=== PATIENT | female | born 1985 | race Caucasian/White ===

== ENCOUNTER → 2019-04-09 | Outpatient (CLI) | payer OTHER ==
[~2019-04-09] MED LIST: ALBU90OI INH; AZIT250 PO; BCP'S; BENZ100A PO; BIRTH CONTROL; BUSP15 PO; CODGUAEL PO; CYCL10 PO; DOXY100 PO; DULO60 PO; Flonase 0.05% N16 GM; GABA100 PO; Guaifenesin-Co118 ML PO; HYDACE5 PO; HYDR1TAB94 PO; MEDR150I IM; METPRE4DP PO; NAPR500 PO; OXYACE5T PO; PROC10 PO; PROCODE120 PO; PROM25 PO; Percocet 5-3251 EACH PO; QUET100; QUET25 PO; RXCYCL10 PO; RXHYD5325 PO; Seroquel25 MG PO; TRAZ100 PO; VENL75ER; Zithromax250 MG PO; Zofran Odt4 MG PO; Zofran Odt4 MG SL; Zofran4 MG PO
[2019-04-09 13:47] LABS: BASOPHILS ABSOLUTE AUTO 0.03 K/mm3 (0.00-0.23); BASOPHILS PERCENT AUTO 0 % (0-2); EOSINOPHILS ABSOLUTE AUTO 0.17 K/mm3 (0.00-0.68); EOSINOPHILS PERCENT AUTO 2 % (0-6); Hemoglobin 13.2 g/dL (11.5-16.0); IMMATURE GRAN ABSOLUTE AUTO 0.03 K/mm3 (0.00-0.10); IMMATURE GRAN PERCENT AUTO 0 % (0-1); LYMPHOCYTES ABSOLUTE AUTO 2.13 K/mm3 (0.84-5.20); LYMPHOCYTES PERCENT AUTO 25 % (21-46); MONOCYTES ABSOLUTE AUTO 0.56 K/mm3 (0.16-1.47); MONOCYTES PERCENT AUTO 6 % (4-13); Mean Corpuscular HGB Conc 33.8 g/dL (31.5-36.5); Mean Corpuscular Volume 89 fL (80-100); Mean Platelet Volume 9.1 fL (9.1-12.4); NEUTROPHILS ABSOLUTE AUTO 5.78 K/mm3 (1.96-9.15); NEUTROPHILS PERCENT AUTO 67 % (41-73); Platelet Count 249 K/mm3 (150-400); RDW Coefficient Variation 11.9 % (11.7-14.2); RDW Standard Deviation 38.5 fL (35.1-46.3)
[2019-04-09 13:59] LABS: Alanine Aminotransfer (ALT/SGP 21 U/L (12-78); Albumin, Blood 3.7 g/dL (3.4-5.0); Alk Phos 73 U/L (40-126); Anion Gap 12 mmol/L (6-16); Aspartate Aminotrans (AST/SGOT 16 U/L (12-37); Bilirubin, Total 0.2 mg/dL (0.1-1.0); Blood Urea Nitrogen 8 mg/dL (8-24); Bun/Creatinine Ratio 10.8 (12.0-20.0); CO2, Blood 24 mmol/L (21-32); Calcium, Blood 8.6 mg/dL (8.5-10.1); Chloride, Blood 106 mmol/L (98-108); Creatinine, Blood 0.74 mg/dL (0.40-1.00); Globulin, Blood 3.6 g/dL (2.2-4.0); Glomerular Filtration Rate >60 (60-); Glucose, Blood 84 mg/dL (70-99); Potassium, Blood 3.6 mmol/L (3.5-5.5); Sodium, Blood 142 mmol/L (136-145); Total Protein, Blood 7.3 g/dL (6.4-8.2); Troponin I <0.017 ng/mL (0.000-0.040)
== END | disposition home or self-care (01) ==
LOC: LAB EV 13:41 → LAB SHORT 13:41
PROVIDERS: Physician Assistant
DX: R07.89 Other chest pain (principal)
CPT/HCPCS: 80053; 84484; 85025

== ENCOUNTER → 2022-05-11 | Outpatient (CLI) | payer OTHER ==
[2022-05-12 11:33] LABS: Candida species (DNA Probe) Negative (NEGATIVE); G. vaginalis (DNA Probe) Negative (NEGATIVE); T. vaginalis (DNA Probe) Negative (NEGATIVE)
[2022-05-13 10:11] LABS: CHLAMYDIA TRACHOMATIS, NAA Negative (Negative); HPV 16 Negative (Negative); HPV 18 Negative (Negative); HPV OTHER HR TYPES Negative (Negative)
== END | disposition home or self-care (01) ==
LOC: LAB SHORT 10:50
PROVIDERS: Nurse Practitioner Family
DX: Z11.3 Encounter for screening for infections with a predominantly sexual mode of transmission (principal); Z11.51 Encounter for screening for human papillomavirus (HPV); Z12.4 Encounter for screening for malignant neoplasm of cervix; N89.8 Other specified noninflammatory disorders of vagina
CPT/HCPCS: 87480; 87491; 87510; 87591; 87624; 87660; G0123

== ENCOUNTER → 2025-01-01 | Outpatient (CLI) | payer OTHER ==
[~2025-01-01] MED LIST changes: +CIPR500 PO; +METR500 PO; +MONDOXYNE NL100 MG PO; +SEROQUEL PO
[2025-01-01 20:16] LABS: Bacterial Vaginosis PCR Negative (NEGATIVE); Candida Group, PCR NOT DETECTED (NOT DETECT); Candida glabrata-krusei, PCR NOT DETECTED (NOT DETECT)
[2025-01-01 20:47] LABS: Chlamydia Trachomatis Vaginal NOT DETECTED (NOT DETECT); Neisseria Gonorrhoea Vaginal NOT DETECTED (NOT DETECT)
== END | disposition home or self-care (01) ==
LOC: LAB SHORT 18:01
PROVIDERS: Family Medicine
DX: Z11.3 Encounter for screening for infections with a predominantly sexual mode of transmission (principal)
CPT/HCPCS: 81515; 87491; 87591

== ENCOUNTER 2025-03-13 08:30 | Day surgery (SDC) | payer OTHER ==
[~2025-03-13] VITALS: Ht 160 cm; Wt 94.0 kg
[~2025-03-13 08:30] MED LIST changes: +Bupivacaine 0.5% W/EPI 1:200000 SDV 30 ML Vial ONE
[2025-03-13] MEDS ORDERED: CeFAZolin Sodium 2,000 MG VIAL ONE (09:02)
[2025-03-13] MEDS ORDERED: TRAZ50 PO (09:21)
[2025-03-13] MEDS ORDERED: ISIBLOOM 28 DA1 EAC1 PO (09:21)
[2025-03-13] MEDS ORDERED: BENADRYL25 MG (09:22)
[2025-03-13] MEDS ORDERED: Ondansetron HCl 2 MG / ML 2ML Vial ONE (10:15)
[2025-03-13] MEDS ORDERED: Metoclopramide HCl 5MG / ML 2ML Vial ONE (10:15)
[2025-03-13] MEDS ORDERED: FentaNYL Citrate 50 MCG/ML 2 ML Injection ONE ×4 (10:16→12:18)
--- NOTE | 2025-03-13 10:49 | NUR ---
03/13/25 1049 Jie Iqbal START OF LEFT POPLITEAL BLOCK AT 1041. END OF POPLITEAL BLOCK AT 1046. PT TOLERATED WELL. VSS.
[2025-03-13] MEDS ORDERED: Midazolam HCl 1MG / ML 2ML Vial ONE ×2 (10:50→13:33)
[2025-03-13] MEDS ORDERED: Sugammadex Sodium 200 MG/2ML SDV (100 MG/ML) ONE (11:32)
[2025-03-13] MEDS ORDERED: Morphine Sulfate 4 MG/1 ML Injection ONE (12:42)
[2025-03-13] MEDS ORDERED: OxyCODONE 5 mg/Acetamin 325 mg TABLET ONE (13:04)
[2025-03-13 13:45] VITALS: BP 149/95
== END 2025-03-13 14:08 | disposition home or self-care (01) ==
LOC: ORSCSDS 08:30
PROVIDERS: Podiatrist Foot & Ankle Surgery
PROC: 0YQN0ZZ Repair Left Foot, Open Approach (ICD-10-PCS; principal; 2025-03-13 10:00)
DX: Q66.89 Other specified congenital deformities of feet (principal); E66.9 Obesity, unspecified; Z68.36 Body mass index [BMI] 36.0-36.9, adult; F41.9 Anxiety disorder, unspecified; F32.A Depression, unspecified; Z79.899 Other long term (current) drug therapy
CPT/HCPCS: A6253; A9270; C1713; J0690; J2250; J2270; J2405; J2704; J2765; J3010; J7120